=== PATIENT | female | born 1960 | race African-American/Black ===

== ENCOUNTER 2016-12-27 11:43 | Emergency (ER) | payer OTHER, MEDICAID ==
[~2016-12-27] VITALS: Ht 160 cm; Wt 110.0 kg
[~2016-12-27 11:43] MED LIST: DUONI NEB; LEVA750T PO; NEBUMIS6 INH; PRED10 PO; VENTAER INH
[2016-12-27 11:47] VITALS: BP 141/81; PULSE 84; RESP 16; TEMP 98.6; O2SAT 98
[2016-12-27] MEDS ORDERED: RESP: ALBUTEROL 2.5 MG/IPRATROPIUM 0.5 MG NEB (SCH) INH ONE (13:30)
--- NOTE | 2016-12-27 13:31 | PD ---
HPI Chief Complaint: Fall Time Seen by Provider: 13:12 Travel History International Travel<30 days: No Contact w/Intl Traveler<30days: No Traveled to known affect area: No History of Present Illness HPI 56-year-old female presents to the emergency department for evaluation of intermittent headaches as well as left knee/lower leg pain for 2 weeks. Patient states she tripped and well. She is unsure if she hit her head, but denies LOC. She reports left-sided headaches intermittently for the past 2 weeks. She currently states it is 5/10. She did denies any midline neck or back pain. No chest pain. She denies any shortness of breath. No abdominal pain. No nausea, vomiting, diarrhea. Patient has history of asthma, hypertension. She takes a baby aspirin, but no anticoagulants. Patient has been ambulatory despite the leg pain. She has not seen her physician for this. Patient appears well on exam. Walking exacerbates leg pain, resting alleviates leg pain. PFSH Past Medical History Asthma: Yes Cancer: No Cardiovascular Problems: Yes High Cholesterol: Yes COPD: Yes Diabetes: Yes Patient Takes Glucophage: Yes Genitourinary: No Hypertension: Yes Immune Disorder: No Musculoskeletal: No Neurologic: No Psychiatric: No Reproductive: No Respiratory: Yes (ASTHMA) Myocardial Infarction: Yes Tetanus Vaccination: > 5 Years Influenza Vaccination: Yes ?: Not Past Surgical History Coronary Stent: Yes Social History Alcohol Use: No Tobacco Use: Yes Substance Use: No Allergies-Medications (Allergen,Severity, Reaction): Coded Allergies: No Known Allergies (Unverified , 12/27/16) Reported Meds & Prescriptions Reported Meds & Active Scripts Active Reported Xigduo Xr 24 HR (Dapagliflozin-Metformin ER 24 HR) 10-1,000 Mg Tab 1 Tab PO DAILY Actos (Pioglitazone HCl) 15 Mg Tab 15 Mg PO DAILY Ventolin Hfa 18 GM Inh (Albuterol Sulfate) 90 Mcg/Act Aer 2 Puff INH Q6H PRN Xalatan Opth Drops (Latanoprost) 0.005% Drops 1 Drop EACH EYE HS Lipitor (Atorvastatin Calcium) 80 Mg Tab 80 Mg PO HS Colace (Docusate Sodium) 100 Mg Capsule 100 Mg PO DAILY PRN Lisinopril-Hctz 10-12.5 Mg Tab 1 Tab PO DAILY Reglan (Metoclopramide HCl) 10 Mg Tab 10 Mg PO Q8HR Advair Diskus Inh (Fluticasone-Salmeterol Inh) 250-50 Mcg/Blist Aer 1 Puff INH Q12HR Rinse mouth after use. Omeprazole 20 Mg Tab 20 Mg PO DAILY Review of Systems Except as stated in HPI: all other systems reviewed are Neg Physical Exam Narrative GENERAL: Well-nourished, well-developed female patient, afebrile. SKIN: Focused skin assessment warm/dry. HEAD: Normocephalic. Atraumatic. EYES: No scleral icterus. No injection or drainage. NECK: Supple, trachea midline. No JVD or lymphadenopathy. CARDIOVASCULAR: Regular rate and rhythm without murmurs, gallops, or rubs. RESPIRATORY: Breath sounds equal bilaterally. No accessory muscle use. Lungs sounds with expiratory wheezes noted throughout. GASTROINTESTINAL: Abdomen soft, non-tender, nondistended. MUSCULOSKELETAL: No cyanosis, or edema. Patient has tenderness to palpation to left lower anterior knee/left upper calf. BACK: Nontender without obvious deformity. No CVA tenderness. Data Data Last Documented VS Vital Signs Date Time Temp Pulse Resp B/P (MAP) Pulse Ox O2 Delivery O2 Flow Rate FiO2 12/27/16 14:13 21 12/27/16 11:47 98.6 84 16 141/81 (101) [address] Brain W/O Iv Contrast(Rout) (12/27/16 ) Knee, Complete (4vws) (12/27/16 ) Tibia/Fibula (Ap/Lat) (12/27/16 ) Albuterol-Ipratropium Neb (Duoneb Neb) (12/27/16 13:30) MDM Medical Decision Making Medical Screen Exam Complete: Yes Emergency Medical Condition: Yes Medical Record Reviewed: Yes Interpretation(s) Last Impressions Tibia/Fibula X-Ray 12/27/16 0000 Signed Impressions: Service Date/Time: December 13:53 - CONCLUSION: Normal examination for a patient of this age. Song Leo MD Knee X-Ray 12/27/16 0000 Signed Impressions: Service Date/Time: December 13:44 - CONCLUSION: Normal examination for a patient of this age. Sogn Leo MD CT of the brain - CONCLUSION: No acute abnormality is identified. Differential Diagnosis Contusion versus sprain versus strain versus fracture versus closed head injury versus intracranial abnormality Narrative Course 56-year-old female presents to the emergency department for evaluation of intermittent headaches for 2 weeks as well as left leg pain since a trip and fall. CT of the brain and x-ray of the left knee and left tibia/fibula are ordered and pending. Due to expiratory wheezes, patient is given DuoNeb 1. She states she last used her inhaler yesterday denies any chest pain or shortness of breath. CT of the brain shows no acute abnormality. X-ray of the left knee is normal. X-ray of the left tibia/fibula is normal. Patient is to follow-up with a primary care physician. Take Tylenol over-the- counter. She verbalizes understanding. Diagnosis Primary Impression: Closed head injury Qualified Codes: S09.90XA - Unspecified injury of head, initial encounter Additional Impression: Left knee sprain Qualified Codes: S83.92XA - Sprain of unspecified site of left knee, initial encounter Referrals: Primary Care Physician call for appointment Patient Instructions: General Instructions, Head Injury (ED), Knee Sprain (ED) Additional Instructions: Elevate your left leg. Heating pad on low for 20 minutes 4-5 times daily. [id number] Tylenol or ibuprofen as needed for pain. Follow-up with your primary care physician. Return to the emergency department for any acute worsening of symptoms. Med/Other Pt SpecificInfo: No Change to Meds Disposition: 01 DISCHARGE HOME Condition: Stable Jazmín Stallings JACQUELYN Dec 27, 2016 13:31
[2016-12-27] MEDS ORDERED: REGL10TA5 PO (13:43)
[2016-12-27] MEDS ORDERED: LATA.005%O EACH EYE (13:43)
[2016-12-27] MEDS ORDERED: LISI10TA PO (13:43)
[2016-12-27] MEDS ORDERED: OMEP20TA PO (13:43)
[2016-12-27] MEDS ORDERED: DAPA1TAB8 PO (13:43)
[2016-12-27] MEDS ORDERED: ACTO15TA11 PO (13:43)
[2016-12-27] MEDS ORDERED: LIPI80TA PO (13:43)
[2016-12-27] MEDS ORDERED: COLA100C PO (13:43)
[2016-12-27] MEDS ORDERED: VENTAER INH (13:43)
[2016-12-27] MEDS ORDERED: ADVA250A INH (13:43)
--- NOTE | 2016-12-27 14:08 | RADRPT ---
EXAM DATE/TIME: 12/27/2016 13:44 [facility] COMPARISON: No previous studies available for comparison. INDICATIONS : Left knee pain after fall. MEDICAL HISTORY : Diabetes mellitus type II. Hypertension High Cholesterol. SURGICAL HISTORY : None. ENCOUNTER: Initial ACUITY: 2 weeks PAIN SCORE: 10/10 LOCATION: Left knee FINDINGS: Four view examination of the left knee demonstrates no evidence of fracture or dislocation. Bony min eralization is normal. The articular surfaces are intact. The suprapatellar soft tissues have a nor mal configuration. CONCLUSION: Normal examination for a patient of this age. Song Leo MD on December 27, 2016 at 14:07 Board Certified Radiologist. This report was verified electronically.
--- NOTE | 2016-12-27 14:09 | RADRPT ---
EXAM DATE/TIME: 12/27/2016 13:53 [facility] COMPARISON: No previous studies available for comparison. INDICATIONS : Left tibia/fibula pain after fall. MEDICAL HISTORY : Hypertension. Diabetes mellitus type II. High Cholesterol. SURGICAL HISTORY : None. ENCOUNTER: Initial ACUITY: 2 weeks PAIN SCORE: 10/10 LOCATION: Left tibia/fibula FINDINGS: Two view examination of the left tibia demonstrates no evidence of fracture or dislocation. Bony min eralization is normal. The soft tissue structures are intact. CONCLUSION: Normal examination for a patient of this age. Song Leo MD on December 27, 2016 at 14:07 Board Certified Radiologist. This report was verified electronically.
--- NOTE | 2016-12-27 15:18 | RADRPT ---
EXAM DATE/TIME: 12/27/2016 14:46 [facility] COMPARISON: No previous studies available for comparison. INDICATIONS : Fall two weeks ago, still having head pains. RADIATION DOSE: 56.82 CTDIvol (mGy) MEDICAL HISTORY : Cardiovascular disease. Hypertension. Chronic obstructive pulmonary disease.Diabetes SURGICAL HISTORY : Coronary artery stent. ENCOUNTER: Initial ACUITY: 2 weeks PAIN SCALE: 4/10 LOCATION: cranial TECHNIQUE: Multiple contiguous axial images were obtained of the head. Using automated exposure control and adj ustment of the mA and/or kV according to patient size, radiation dose was kept as low as reasonably a chievable to obtain optimal diagnostic quality images. DICOM format image data is available electro nically for review and comparison. FINDINGS: CEREBRUM: The ventricles are normal. No evidence of midline shift, mass lesion, hemorrhage or acute infarction . No extra-axial fluid collections are seen. POSTERIOR FOSSA: The cerebellum and brainstem are intact. The 4th ventricle is midline. The cerebellopontine angle i s unremarkable. EXTRACRANIAL: Visualized sinuses are clear. SKULL: The calvaria is intact. No evidence of skull fracture. CONCLUSION: No acute abnormality is identified. Antelmo Hernandez MD on December 27, 2016 at 15:14 Board Certified Radiologist. This report was verified electronically.
== END 2016-12-27 15:51 | disposition home or self-care (01) ==
LOC: NEPE 11:43
DX: S09.90XA Unspecified injury of head, initial encounter (principal); S83.92XA Sprain of unspecified site of left knee, initial encounter; E11.9 Type 2 diabetes mellitus without complications; I10 Essential (primary) hypertension; W01.0XXA Fall on same level from slipping, tripping and stumbling without subsequent striking against object, initial encounter; Z72.0 Tobacco use; Z79.84 Long term (current) use of oral hypoglycemic drugs
CPT/HCPCS: 70450; 73564; 73590; 94664; 99284

== ENCOUNTER 2017-05-01 07:33 | Emergency (ER) | payer OTHER, MEDICAID ==
[~2017-05-01 07:33] MED LIST changes: +ACTO15TA22 PO; +ADVA250A INH; +COLA100C5 PO; +DAPA1TAB8 PO; -DUONI NEB; +LATA.005%O EACH EYE; -LEVA750T PO; +LIPI80TA PO; +LISI10TA PO; -NEBUMIS6 INH; +OMEP20TA93 PO; -PRED10 PO; +REGL10TA5 PO
[2017-05-01 07:35] VITALS: BP 143/84; PULSE 77; RESP 14; TEMP 98.2; O2SAT 95
[2017-05-01] MEDS ORDERED: BACT800T5 PO (08:45)
[2017-05-01] MEDS ORDERED: LIDOCAINE HCL 1% 20 ML VIAL INFIL ONE (08:45)
[2017-05-01] MEDS ORDERED: IBUP1TAB7 PO (08:45)
--- NOTE | 2017-05-01 08:46 | PD ---
HPI Chief Complaint: Wound/Suture/Staple Re-Check Time Seen by Provider: 08:28 Travel History International Travel<30 days: No Contact w/Intl Traveler<30days: No Traveled to known affect area: No History of Present Illness HPI A Guatemalan-speaking rn social services was used for translation with the patient's permission. 56-year-old female patient arrives to the emergency department with complaint of an abscess to her right buttocks 1 week. Has history of abscesses. Says the pain radiates down her right leg. Reports nausea without vomiting. Reports subjective fever yesterday. Denies vomiting. Took 1 pill of an antibiotic from her friend but does not know the name of it. Has applied Vicks to the area also. Rates pain 10/10. Worse with pressure in sitting. No known relieving factors. No known allergies. History of hypertension, hypercholesterolemia, asthma. Has a primary care provider but does not know the name. Has an appointment with her PCP on 2017. Has no other medical complaints. No other modifying factors or associated signs and symptoms. PFSH Past Medical History Asthma: Yes Cancer: No Cardiovascular Problems: Yes High Cholesterol: Yes COPD: Yes Diabetes: Yes Patient Takes Glucophage: Yes Genitourinary: No Hypertension: Yes Immune Disorder: No Musculoskeletal: No Neurologic: No Psychiatric: No Reproductive: No Respiratory: Yes (ASTHMA) Myocardial Infarction: Yes ?: Not Past Surgical History Coronary Stent: Yes Social History Alcohol Use: No Tobacco Use: Yes Substance Use: No Allergies-Medications (Allergen,Severity, Reaction): Coded Allergies: No Known Allergies (Unverified Adverse Reaction, Unknown, 05/01/17) Reported Meds & Prescriptions Reported Meds & Active Scripts Active Ibuprofen 800 Mg Tab 800 Mg PO Q6HR PRN Bactrim DS (Sulfamethoxazole-Trimethoprim) 800-160 Mg Tab 1 Tab PO BID 10 Days Reported Xigduo Xr 24 HR (Dapagliflozin-Metformin ER 24 HR) 10-1,000 Mg Tab 1 Tab PO DAILY Actos (Pioglitazone HCl) 15 Mg Tab 15 Mg PO DAILY Ventolin Hfa 18 GM Inh (Albuterol Sulfate) 90 Mcg/Act Aer 2 Puff INH Q6H PRN Xalatan Opth Drops (Latanoprost) 0.005% Drops 1 Drop EACH EYE HS Lipitor (Atorvastatin Calcium) 80 Mg Tab 80 Mg PO HS Colace (Docusate Sodium) 100 Mg Capsule 100 Mg PO DAILY PRN Lisinopril-Hctz 10-12.5 Mg Tab 1 Tab PO DAILY Reglan (Metoclopramide HCl) 10 Mg Tab 10 Mg PO Q8HR Advair Diskus Inh (Fluticasone-Salmeterol Inh) 250-50 Mcg/Blist Aer 1 Puff INH Q12HR Rinse mouth after use. Omeprazole 20 Mg Tab 20 Mg PO DAILY Review of Systems Except as stated in HPI: all other systems reviewed are Neg Physical Exam Narrative GENERAL: Well-nourished, well-developed female patient, in no acute distress; afebrile, nontoxic-appearing SKIN: There is an indurated area to the right inner buttock which measures about 2.5 cm in diameter. It is fluctuant but there is no pointing or drainage. There is a zone of inflammation around it but no lymphangitis. HEAD: Atraumatic. Normocephalic. EYES: Pupils equal and round. No scleral icterus. No injection or drainage. ENT: Mucosa pink and moist. Airway patent. NECK: Trachea midline. CARDIOVASCULAR: Regular rate. RESPIRATORY: No accessory muscle use. GASTROINTESTINAL: Obese. MUSCULOSKELETAL: No obvious deformities. No clubbing. No cyanosis. No edema. NEUROLOGICAL: Awake and alert. Oriented 3. No obvious cranial nerve deficits. Motor grossly within normal limits. Normal speech. PSYCHIATRIC: Appropriate mood and affect; insight and judgment normal. Data Data Last Documented VS Vital Signs Date Time Temp Pulse Resp B/P (MAP) Pulse Ox O2 Delivery O2 Flow Rate FiO2 05/01/17 07:46 (103) 05/01/17 07:35 98.2 77 14 95 Orders Orders Wound Culture And Gram Stain (05/01/17 08:38) Lidocaine 1% Inj (Xylocaine 1% Inj) (05/01/17 08:45) MDM Medical Decision Making Medical Screen Exam Complete: Yes Emergency Medical Condition: Yes Medical Record Reviewed: Yes Differential Diagnosis Abscess, folliculitis, cellulitis Narrative Course 56-year-old female with an abscess to her right inner buttocks. Patient is afebrile and nontoxic-appearing. Reports subjective fever. Denies vomiting. See my procedure note for incision and drainage of the abscess. Wound culture pending. Bactrim, tramadol and ibuprofen prescribed for home. Instructed patient to return to the emergency department in 48 hours for wound recheck and packing removal. Patient verbalized understanding and agreement. Instructed patient to follow up with primary care provider. Patient verbalizes understanding and agreement with treatment plan. Patient is medically cleared and stable for discharge. Discussed reasons to return to the emergency department. Patient agrees with treatment plan. The patients vital signs are stable and the patient is stable for outpatient follow-up and treatment. Patient discharged home, stable and in no acute distress. Procedures Procedure Narrative INCISION AND DRAINAGE OF ABSCESS: The area was prepped and was sterilely draped. A subcutaneous wheal of 1 % Xylocaine with a total number 2 mL was used to anesthetize the area properly. A number 11 scalpel was used to make a 1 -cm incision across the area of the abscess. The abscess was drained, complex loculations were broken down, and irrigated with normal saline. Cultures were obtained. Sterile dressing applied. Diagnosis Primary Impression: Abscess of buttock, right Referrals: Primary Care Physician Patient Instructions: Abscess (ED), Abscess Follow-up (ED), Abscess Incision and Drainage (GEN), General Instructions Additional Instructions: Complete full course of antibiotics Warm compresses to the affected area Keep area clean and dry Ibuprofen or Tylenol as directed and as needed for pain and inflammation Return to the emergency department in 48 hours for packing removal and abscess recheck Follow-up with primary care provider Return to emergency department immediately with worsening of symptoms Med/Other Pt SpecificInfo: Prescription(s) given Scripts Tramadol (Tramadol) 50 Mg Tab 50 MG PO Q4H Y for PAIN, #10 TAB 0 Refills Prov: Halina Harris 05/01/17 Ibuprofen (Ibuprofen) 800 Mg Tab 800 MG PO Q6HR Y for PAIN, #30 TAB 0 Refills Prov: Halina Harris 05/01/17 Sulfamethoxazole-Trimethoprim (Bactrim DS) 800-160 Mg Tab 1 TAB PO BID for Infection for 10 Days, #20 TAB 0 Refills Prov: Halina Harris 05/01/17 Disposition: 01 DISCHARGE HOME Condition: Stable Halina Harris May 01, 2017 08:46
[2017-05-01] MEDS ORDERED: TRAM50TA PO (09:02)
== END 2017-05-01 09:17 | disposition home or self-care (01) ==
LOC: NEPD 07:33
DX: L02.31 Cutaneous abscess of buttock (principal); R50.9 Fever, unspecified; J44.9 Chronic obstructive pulmonary disease, unspecified; I10 Essential (primary) hypertension; E11.9 Type 2 diabetes mellitus without complications; Z79.84 Long term (current) use of oral hypoglycemic drugs; I25.2 Old myocardial infarction
CPT/HCPCS: 10060; 10061; 86403; 87070; 87205

== ENCOUNTER 2017-05-03 07:35 | Emergency (ER) | payer OTHER, MEDICAID ==
[~2017-05-03] VITALS: Ht 157.5 cm; Wt 106.5 kg
[~2017-05-03 07:35] MED LIST changes: +BACT800T5 PO; +IBUP1TAB7 PO; +TRAM50TA PO
[2017-05-03 07:37] VITALS: BP 137/82; PULSE 104; RESP 20; TEMP 99.1; O2SAT 97
--- NOTE | 2017-05-03 08:21 | PD ---
HPI Chief Complaint: Wound/Suture/Staple Re-Check Time Seen by Provider: 08:07 Travel History International Travel<30 days: No Contact w/Intl Traveler<30days: No Traveled to known affect area: No History of Present Illness HPI 56-year-old female presents to the emergency department for abscess recheck and iodoform packing removal. I saw this patient 2 days ago and performed the incision and drainage of the abscess to her right buttocks. She denies fever, vomiting. Has been taking antibiotics as prescribed. Reports improvement in the area. Symptoms are mild in severity. Bactrim is relieving her abscess. Has been taking Tylenol for pain. Has no other medical complaints. No known allergies. No other modifying factors or associated signs and symptoms. PFSH Past Medical History Asthma: Yes Cancer: No Cardiovascular Problems: Yes High Cholesterol: Yes COPD: Yes Diabetes: Yes Genitourinary: No Hypertension: Yes Immune Disorder: No Musculoskeletal: No Neurologic: No Psychiatric: No Reproductive: No Respiratory: Yes (ASTHMA) Myocardial Infarction: Yes Past Surgical History Coronary Stent: Yes Social History Alcohol Use: No Tobacco Use: Yes Substance Use: No Allergies-Medications (Allergen,Severity, Reaction): Coded Allergies: No Known Allergies (Verified Adverse Reaction, Unknown, 05/03/17) Reported Meds & Prescriptions Reported Meds & Active Scripts Active Tramadol (Tramadol HCl) 50 Mg Tab 50 Mg PO Q4H PRN Ibuprofen 800 Mg Tab 800 Mg PO Q6HR PRN Bactrim DS (Sulfamethoxazole-Trimethoprim) 800-160 Mg Tab 1 Tab PO BID 10 Days Reported Xigduo Xr 24 HR (Dapagliflozin-Metformin ER 24 HR) 10-1,000 Mg Tab 1 Tab PO DAILY Actos (Pioglitazone HCl) 15 Mg Tab 15 Mg PO DAILY Ventolin Hfa 18 GM Inh (Albuterol Sulfate) 90 Mcg/Act Aer 2 Puff INH Q6H PRN Xalatan Opth Drops (Latanoprost) 0.005% Drops 1 Drop EACH EYE HS Lipitor (Atorvastatin Calcium) 80 Mg Tab 80 Mg PO HS Colace (Docusate Sodium) 100 Mg Capsule 100 Mg PO DAILY PRN Lisinopril-Hctz 10-12.5 Mg Tab 1 Tab PO DAILY Reglan (Metoclopramide HCl) 10 Mg Tab 10 Mg PO Q8HR Advair Diskus Inh (Fluticasone-Salmeterol Inh) 250-50 Mcg/Blist Aer 1 Puff INH Q12HR Rinse mouth after use. Omeprazole 20 Mg Tab 20 Mg PO DAILY Review of Systems Except as stated in HPI: all other systems reviewed are Neg Physical Exam Narrative GENERAL: Well-nourished, well-developed patient, in no acute distress; afebrile, nontoxic-appearing SKIN: There is an abscess to the right inner buttocks post incision and drainage with iodoform packing intact; very minimal surrounding erythema; no drainage noted. HEAD: Atraumatic. Normocephalic. EYES: Pupils equal and round. No scleral icterus. No injection or drainage. ENT: Mucosa pink and moist. Airway patent. NECK: Trachea midline. CARDIOVASCULAR: Regular rate. RESPIRATORY: No accessory muscle use. GASTROINTESTINAL: Obese. MUSCULOSKELETAL: No obvious deformities. No clubbing. No cyanosis. No edema. NEUROLOGICAL: Awake and alert. Oriented 3. No obvious cranial nerve deficits. Motor grossly within normal limits. Normal speech. PSYCHIATRIC: Appropriate mood and affect; insight and judgment normal. Data Data Last Documented VS Vital Signs Date Time Temp Pulse Resp B/P (MAP) Pulse Ox O2 Delivery O2 Flow Rate FiO2 05/03/17 07:37 99.1 104 20 137/82 (100) 97 Room Air Orders Orders Ed Discharge Order (05/03/17 08:21) MDM Medical Decision Making Medical Screen Exam Complete: Yes Emergency Medical Condition: Yes Medical Record Reviewed: Yes Differential Diagnosis Encounter for abscess packing removal, encounter for abscess recheck, abscess Narrative Course 56-year-old female that was here on 05/01/2017 for abscess and drainage and drainage returns for packing removal and abscess recheck. I perform the incision and drainage 2 days ago. The abscess appears with improvement. Iodoform packing removed. Instructed patient to continue Bactrim. Instructed patient to follow up with primary care provider. Patient verbalizes understanding and agreement with treatment plan. Patient is medically cleared and stable for discharge. Discussed reasons to return to the emergency department. Patient agrees with treatment plan. The patients vital signs are stable and the patient is stable for outpatient follow-up and treatment. Patient discharged home, stable and in no acute distress. Diagnosis Primary Impression: Encounter for recheck of abscess following incision and drainage Referrals: Primary Care Physician Patient Instructions: Abscess (ED), Abscess Follow-up (ED), General Instructions Additional Instructions: Complete full course of antibiotics Warm compresses to the affected area Keep area clean and dry Ibuprofen or Tylenol as directed and as needed for pain and inflammation Follow-up with primary care provider Return to emergency department immediately with worsening of symptoms Med/Other Pt SpecificInfo: No Change to Meds, No Meds Exist/No RX given Disposition: 01 DISCHARGE HOME Condition: Stable Halina Harris May 03, 2017 08:21
== END 2017-05-03 08:36 | disposition home or self-care (01) ==
LOC: NEPD 07:35
DX: Z51.89 Encounter for other specified aftercare (principal); L02.31 Cutaneous abscess of buttock; E78.00 Pure hypercholesterolemia, unspecified; J45.909 Unspecified asthma, uncomplicated; J44.9 Chronic obstructive pulmonary disease, unspecified; E11.9 Type 2 diabetes mellitus without complications; I25.2 Old myocardial infarction; Z72.0 Tobacco use; Z79.51 Long term (current) use of inhaled steroids
CPT/HCPCS: 99281